=== PATIENT | female | born 1995 | race Caucasian/White ===

== ENCOUNTER 2020-12-26 16:25 | Inpatient (IN) | payer BC, SELFPAY ==
[2020-12-26] VITALS (54 sets, daily range): BP systolic 92–142; BP diastolic 51–82; PULSE 57–98; RESP 16–18; TEMP 36.3; O2SAT 98–100; BMI 25.2
[2020-12-26 17:51] LABS: Basophils # 0.1 10^3/uL (0.0-0.1); Basophils % 0.4 %; Eosinophils # 0.2 10^3/uL (0.0-0.8); Eosinophils % 1.3 %; Hematocrit 36.2 % (37.0-47.0); Hemoglobin 11.4 g/dL (11.5-15.3); Lymphocytes # 1.5 10^3/uL (0.8-4.8); Lymphocytes % 11.7 %; Mean Corpuscular HGB Conc 31.5 g/dL (30.0-36.0); Mean Corpuscular Hemoglobin 27.9 pg (28.0-34.0); Mean Corpuscular Volume 88.7 fL (81-99); Mean Platelet Volume 12.1 fL (7.4-10.4); Monocytes # 0.7 10^3/uL (0.2-0.9); Monocytes % 5.7 %; Neutrophils # 10.27 10^3/uL (1.8-7.7); Neutrophils % 80.4 %; Nucleated Red Blood Cells % 0 %; Platelet Count 195 10^3/cmm (130-400); Red Blood Count 4.08 10^6/uL (4.1-5.3); Red Cell Distribution Width 12.2 % (12.1-15.1); White Blood Count 12.8 10^3/uL (4.0-10.0)
[2020-12-26] MEDS: oxytocin 30 UNIT/500 ML BAG IV (18:10)
[2020-12-26] MEDS: lactated ringers 1,000 ML 999 ML IV ×3 (18:11→22:33)
[2020-12-26] MEDS: acetaminophen 325 mg Tablet 650 MG PO (18:23)
[2020-12-26] MEDS: dextrose 5%-lactated ringers 1,000 ML 125 ML IV (19:30)
--- NOTE | 2020-12-26 19:53 | P.ANESASSM_ITS ---
Pre-Anesthetic Assessment Pre-Anesthetic Assessment: Height/Weight: Height 1.68 m Weight 70.76 kg Temp Pulse Resp BP Pulse Ox 97.3 F L 73 16 125/58 100 12/26/20 18:25 12/26/20 19:49 12/26/20 19:02 12/26/20 19:49 12/26/20 19:47 Preop Diagnosis: Active Labor Proposed Procedure: Epidural Familial anesthetic complications: none reported Was Beta Dheeraj taken within 24 hours: N/A Was Clonidine taken within 24 hours: N/A Last intake: food 1400 Social: Social History: No alcohol and No tobacco Exam: Pre-Anes Outpt Exam: alert and No oriented x 3 Airway: Submandibular: WNL Cervical ROM: WNL MP: 2 Dentition: Full History/ROS: No significant history except as noted Pulmonary: Pulmonary: None reported CV/HEM: CV/HEM: None reported : : None reported Hepatic: Hepatic: None reported GI: GI: None reported Metabolic: Metabolic: None reported Musc/skel: Musc/skel: None reported Neuropsych: Neuropsych: None reported Anesthetic Plan: ASA status: 1 Anesthesia: Regional (specify below) Risk of > 500 ml blood loss (7ml/kg in children): No Meds/Allergies Current Medications: Current Medications Generic Name Dose Route Start Last Admin Trade Name Freq PRN Reason Stop Dose Admin Acetaminophen 650 mg 12/26/20 16:54 12/26/20 18:23 Acetaminophen 32 5 Mg Tablet PO 650 mg Q6H PRN Administration Mild pain or temp > 100.4 Dextrose/Lactated Ringer's 1,000 mls @ 125 m ls/hr 12/26/20 17:00 12/26/20 19:30 Dextrose 5%-Lact ated Ringers IV 125 mls/hr .Q8H VONDA Administration Oxytocin 30 unit in 500 ml s @ 1 mls/hr 12/26/20 17:45 12/26/20 18:55 Pitocin IV 7 milliunit/min .Q24H VONDA 7 mls/hr Titration Protocol 1 MILLIUNIT/MIN Ropivacaine 200 mg in 100 mls @ 13 mls/hr 12/26/20 17:45 12/26/20 19:48 Naropin Premix EPIDURAL 13 mls/hr .Q7H42M VONDA Administration Lactated Ringer's 1,000 mls @ 999 m ls/hr 12/26/20 17:44 12/26/20 19:10 Lactated Ringers IV Infused .Q1H1M PRN Infusion See label comment s PFSH Anesthesia PFSH: Medical History (Updated 07/27/20 @ 08:07 by Mariah Miller DO) No pertinent past medical history Family History (Updated 07/23/20 @ 10:26 by Mónica Morales LPN) Other Diabetes Social History (Updated 07/23/20 @ 10:26 by Mónica Morales LPN) Smoking and tobacco status: never smoked Alcohol intake: never Female Reproductive History: : 3 Data Anesthesia CBC & Chem 7: 12/26/20 17:10 Other Labs: Laboratory Results - last 48 hr 12/26/20 17:10 WBC 12.8 H RBC 4.08 L Hgb 11.4 L Hct 36.2 L MCV 88.7 MCH 27.9 L MCHC 31.5 RDW 12.2 Plt Count 195 MPV 12.1 H Neut % (Auto) 80.4 Lymph % (Auto) 11.7 [place] % (Auto) 5.7 Eos % (Auto) 1.3 Baso % (Auto) 0.4 Neut # (Auto) 10.27 H Lymph # (Auto) 1.5 [place] # (Auto) 0.7 Eos # (Auto) 0.2 Baso # (Auto) 0.1 Nucleated RBC % (auto) 0 Nucleated RBCs # 0.0 Cardiac Studies: No Data to Display
--- NOTE | 2020-12-26 19:56 | P.ANES_ITS ---
Anesthesia Procedures Procedure/Date: 12/26/20 Epidural: Time Out Performed: Yes Consents Signed: Procedure Consent Consent: requested by attending/covering physician and from patient Lumbar Level: L3-L4 Epidural position: sitting Epidural procedure: sterile prep of area, 1% lidocaine to numb the area, negative for paresthesia passed, test do se given, 1.5% xylocaine 1:200k epi, placed PCEA, no systemic response, sterile dressing applied, L.U.D. no apparent complications and 0.2% Ropiavacaine @ mls/hr (13)
--- NOTE | 2020-12-26 21:14 | P.ANES_ITS ---
Anesthesia Procedures Procedure/Date: 12/26/20 Epidural: Time Out Performed: Yes Consents Signed: Procedure Consent Consent: requested by attending/covering physician and from patient Lumbar Level: L3-L4 Epidural position: sitting Epidural procedure: sterile prep of area, 1% lidocaine to numb the area, negative for paresthesia passed, test do se given, 1.5% xylocaine 1:200k epi, 0.2% Ropivacaine bolus ml (5 ml), no systemic response, sterile dressing applied, L.U.D. no apparent complications and 0.2% Ropiavacaine @ mls/hr (13) Additional Comments: Patient not getting adequate relief from previously place labor epidural, epidural removed tip intact. SUJATHA @ 6 cm catheter threaded to 13 cm negative heme negative CSF patient expressed increase comfort.
[2020-12-26] MEDS: ondansetron 2 mg/ML SDV 2 mL 4 MG IVP (22:28)
--- NOTE | 2020-12-26 23:08 | PM.DELIVERY ---
Delivery Note: Date of delivery: December 26, 2020 Pre-delivery diagnoses: 1. 3 para 2-0-0-2 with an estimated gestational age of 39 weeks with spontaneous rupture of membranes Post-delivery diagnoses: Status post spontaneous vaginal delivery Procedure: Spontaneous vaginal delivery Op report anesthesia: Epidural Estimated blood loss (mL): 100 Pre-Delivery Course: The patient presented to the hospital with spontaneous rupture membranes. She was having copious amounts of fluid per vagina. It was nitrazine positive. She was not having contractions. Pitocin was initiated. Delivery: DELIVERY: The patient progressed to complete without difficulty. She delivered a male with a weight of 7 pounds 10 ounces with Apgars of 8, 10. The baby was delivered from the MARIELLE position. and placed on the mother's abdomen. The cord was then clamped and cut 1 minute after delivery. There was no nuchal cord. There was no meconium. The placenta and 3 vessel cord were delivered intact shortly thereafter. The perineum and vaginal vault were carefully examined. No lacerations were noted. Both the mother and the baby were in stable condition. Post-Delivery Status: Good A&P Assessment and plan (1) 39 weeks gestation of : Status: Acute (2) Spontaneous vaginal delivery: Status: Acute Coding Level of Care Code Acute Board Certified Arts Therapist for Chg Fwd Diagnoses 39 weeks gestation of Z3A.39 Spontaneous vaginal delivery O80
[2020-12-26] MEDS: HYDROcodone-acetaminophen 5-325 mg Tablet PO (23:44)
[2020-12-27] VITALS (22 sets, daily range): BP systolic 94–140; BP diastolic 50–61; PULSE 59–95; RESP 16–18; TEMP 35.7–36.7
[2020-12-27] MEDS: morphine 4 mg/mL SDV 1 mL 1 MG IVP (03:16)
[2020-12-27] MEDS: ibuprofen 800 mg tablet PO ×3 (09:23→21:05)
[2020-12-27] MEDS: prenatal vitamin Capsule 1 CAP PO (09:23)
[2020-12-27] MEDS: docusate sodium 100 mg Capsule PO (09:23)
--- NOTE | 2020-12-27 09:23 | P.DS_ITS ---
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 She was not having contractions. She was placed on Pitocin. She received an epidural. She progressed to complete and had an unremarkable delivery of a healthy appearing 39-week male . Her course was unremarkable. Her bleeding was within normal limits. She breast-fed well. They did have to make multiple attempts to get into her epidural. She does have back pain today . Information Peripartum Data: Delivery Method: Vaginal Physical Exam Narrative: EXAM NARRATIVE: The patient is alert. She appears comfortable. Her heart has a regular rate and rhythm with no murmurs appreciated. Lungs are clear to auscultation bilaterally. Her fundus is firm and below the umbilicus. Urinary Catheter Management^: Gunn: Cath Placed During This Visit: yes, but has since been removed by the nurse Reason for Continuing Indwelling Catheter: Decision to DC Catheter Urinary Catheter Date of Insertion: 12/27/20 Urinary Catheter Time of Insertion: 20:30 Date Urinary Catheter Removed: 12/26/20 Time Urinary Catheter Discontinued: 22:47 Discharge Data Data Completed and Pending: Pending at discharge Category Date Time Status Hemagram Timed Lab 12/27/20 11:07 Uncollected Labs from last 24 hours 12/26/20 17:10 WBC 12.8 H RBC 4.08 L Hgb 11.4 L Hct 36.2 L MCV 88.7 MCH 27.9 L MCHC 31.5 RDW 12.2 Plt Count 195 MPV 12.1 H Neut % (Auto) 80.4 Lymph % (Auto) 11.7 [place] % (Auto) 5.7 Eos % (Auto) 1.3 Baso % (Auto) 0.4 Neut # (Auto) 10.27 H Lymph # (Auto) 1.5 [place] # (Auto) 0.7 Eos # (Auto) 0.2 Baso # (Auto) 0.1 Nucleated RBC % (a uto) 0 Nucleated RBCs # 0.0 Vitals: Last Vital Signs Temp 97.3 F L 12/27/20 06:45 Pulse 59 L 12/27/20 08:23 Resp 18 12/27/20 03:16 BP 94/55 12/27/20 08:23 Pulse Ox 98 12/26/20 21:02 Discharge Plan Discharge Patient Disposition: Home Condition: Stable Prescriptions: New ibuprofen 800 mg Tablet 800 mg PO TID PRN (Reason: Abdominal Pain) Qty: 30 RF: 0 -U 106.5-1 mg Capsule 1 cap PO DAILY Qty: 90 RF: 0 Discharge Orders: Discharge Order (Routine); Ordered 12/27/20 Ordered By: Rashi Sandra Discharge Diet: Usual diet Discharge Activity: Limit activity as instructed Patient Instructions: Opioid Safety 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
[2020-12-27 11:10] LABS: Hematocrit 33.6 % (37.0-47.0); Hemoglobin 10.8 g/dL (11.5-15.3); Mean Corpuscular HGB Conc 32.1 g/dL (30.0-36.0); Mean Corpuscular Hemoglobin 28.6 pg (28.0-34.0); Mean Corpuscular Volume 88.9 fL (81-99); Mean Platelet Volume 11.4 fL (7.4-10.4); Platelet Count 172 10^3/cmm (130-400); Red Blood Count 3.78 10^6/uL (4.1-5.3); Red Cell Distribution Width 12.2 % (12.1-15.1); White Blood Count 13.1 10^3/uL (4.0-10.0)
[2020-12-27] MEDS: measles,mumps,rubella pf Vial (w/diluent) 0.5 ML SUBCUT (22:09)
== END 2020-12-27 23:05 | disposition home or self-care (01) | DRG 807 ==
LOC: OPOB 16:37 → OBGYN 16:38
PROVIDERS: Admitting Provider Family Medicine; PCP Family Medicine; Visit Provider Family Medicine
DX: O80 Encounter for full-term uncomplicated delivery (principal); Z37.0 Single live birth; Z3A.39 39 weeks gestation of pregnancy
CPT/HCPCS: 12345; 36415; 51702; 59025; 59409; 83986; 85025; 85027; 90707; 96372; 99211; J2270; J2405; J2795